=== PATIENT | male | born 1980 | race Hispanic/Latino ===

== ENCOUNTER 2017-06-27 23:01 | Emergency (ER) | payer MEDICAID ==
[2017-06-27 23:16] VITALS: BP 143/84; PULSE 90; RESP 16; TEMP 100.7; O2SAT 98
[2017-06-27] MEDS ORDERED: Amoxicillin-Clav 875-125 mg Tab PO STA (23:33)
[2017-06-27] MEDS ORDERED: Amoxicillin-Clav 875-125 mg Tab PO ONE (23:38)
--- NOTE | 2017-06-27 23:44 | C.PDOC ---
History Of Present Illness 36 year old male presents to the ER with a complaint of fever, body aches, cough , and runny nose. Patient is also complaining of pain to the right lower molar for the past few days. Denies nausea, vomiting, diarrhea, chest pain, SOB, or recent travel. Time Seen by Provider: 06/27/17 23:17 Chief Complaint (Nursing): Flu-like Symptoms History Per: Patient History/Exam Limitations: no limitations Onset/Duration Of Symptoms: Hrs Current Symptoms Are (Timing): Still Present Location Of Pain: Diffuse Myalgias Sick Contacts (Context): None Associated Symptoms: Fever, Cough, Sinus Drainage, Myalgias. denies: Nausea, Vomiting, Diarrhea, Other (Chest pain, SOB) Ear Symptoms: Bilateral: None Recent travel outside of the [place]: No Past Medical History Reviewed: Historical Data, Nursing Documentation, Vital Signs Vital Signs: Last Vital Signs Temp 100.7 F H 06/27/17 23:13 Pulse 90 06/27/17 23:13 Resp 16 06/27/17 23:13 BP 143/84 06/27/17 23:13 Pulse Ox 98 06/29/17 04:22 Family History: States: Unknown Family Hx - Social History Hx Alcohol Use: No Hx Substance Use: No - Immunization History Hx Tetanus Toxoid Vaccination: No Hx Influenza Vaccination: No Hx Pneumococcal Vaccination: No Review Of Systems Constitutional: Positive for: Fever ENT: Positive for: Nose Discharge Cardiovascular: Negative for: Chest Pain, Palpitations Respiratory: Positive for: Cough Gastrointestinal: Negative for: Vomiting, Abdominal Pain, Diarrhea Musculoskeletal: Positive for: Other (Body aches) Physical Exam - Physical Exam Appears: Non-toxic, No Acute Distress Skin: Normal Color, Warm, Dry, No Rash Head: Atraumatic, Normacephalic Eye(s): bilateral: Normal Inspection, PERRL, EOMI Ear(s): Bilateral: Normal Nose: Normal Oral Mucosa: Moist, No Trismus Tongue: Normal Appearing Lips: Normal Appearing Teeth: Caries, Other ((+) cracked tooth to the right lower 2nd pre-molar. ) Gingiva: Normal Appearing Throat: Normal, No Erythema, No Exudate Neck: Normal, No Midline Cervical Tenderness, No Paracervical Tenderness, Supple Chest: Symmetrical, No Tenderness Cardiovascular: Rhythm Regular, No Friction Rub, No Murmur Respiratory: Normal Breath Sounds, No Rales, No Rhonchi, No Wheezing Gastrointestinal/Abdominal: Soft, No Tenderness Back: Normal Inspection, No CVA Tenderness Extremity: Normal ROM, No Swelling Neurological/Psych: Oriented x3, Normal Speech, Normal Motor Gait: Steady ED Course And Treatment O2 Sat by Pulse Oximetry: 98 (Room air) Pulse Ox Interpretation: Normal Medical Decision Making Medical Decision Making: Motrin, tamiflu, and augmentin administered. Patient is resting comfortably in the ER in no acute distress, will discharge home with Rx and instructions to follow up with PMD or return to ER if symptoms worsen. Disposition - Disposition Referrals: [facility] [Outside] Disposition: HOME/ ROUTINE Disposition Time: 23:41 Condition: GOOD Additional Instructions: Follow up with the medical doctor/clinic within 1-2 days without fail. Return if worsened. Prescriptions: Amoxicillin/Clavulanate [Augmentin 875 MG-125 MG] 1 tab PO BID #14 tab Ibuprofen [Motrin] 600 mg PO TID #21 tab Oseltamivir [Tamiflu] 75 mg PO BID #9 cap Instructions: Tooth Decay, Adult, Flu, Adult (DC) Forms: [employer] (Romansh) - Clinical Impression Clinical Impression: Influenza-like illness, Toothache, Dental caries - PA / MANAGER [employer] / Resident Statement MD/DO has reviewed & agrees with the documentation as recorded. - Scribe Statement The provider has reviewed the documentation as recorded by the Scribwendy Hernandez All medical record entries made by the Scribwendy were at my direction and personally dictated by me. I have reviewed the chart and agree that the record accurately reflects my personal performance of the history, physical exam, medical decision making, and the department course for this patient. I have also personally directed, reviewed, and agree with the discharge instructions and disposition.
== END 2017-06-28 00:05 | disposition home or self-care (01) ==
LOC: C.ER 23:01
DX: J11.1 Influenza due to unidentified influenza virus with other respiratory manifestations (principal); K02.9 Dental caries, unspecified; K08.89 Other specified disorders of teeth and supporting structures; F17.210 Nicotine dependence, cigarettes, uncomplicated